=== PATIENT | female | born 1950 | race African-American/Black ===

== ENCOUNTER 2017-06-22 23:51 | Inpatient (IN) | payer MEDICARE, MEDICAID ==
[~2017-06-22] VITALS: Ht 182.9 cm; Wt 69.7 kg
[~2017-06-22 23:51] MED LIST: AMLO5 PO; CHOL1TAB16 PO; CYCL100C6 PO; FLUD.1 PO; ISON300T18 PO; LEVE250 PO; LEVE250T5; LEVO500T3 PO; MAGN400 PO; MYCO500T PO; NEXI40CA PO; PYRI50TA PO; SULF400T20 PO; TRAM50TA PO; TUMS500C PO; URSO300C3 PO
[2017-06-23] VITALS (9 sets, daily range): BP systolic 130–157; BP diastolic 65–74; PULSE 76–90; RESP 16–18; TEMP 95.4–99.7; O2SAT 95–99
[2017-06-23] MEDS ORDERED: CHOL1CAP34 PO (00:19)
[2017-06-23] MEDS ORDERED: TUMS500C CHEW (00:19)
[2017-06-23] MEDS ORDERED: MYCO250C PO (00:19)
[2017-06-23] MEDS ORDERED: LEVE250T5 PO (00:19)
[2017-06-23] MEDS ORDERED: CYCL25CA4 PO (00:19)
[2017-06-23] MEDS ORDERED: AMLO5TAB2 PO (00:19)
[2017-06-23] MEDS ORDERED: NEXI40CA PO (00:19)
[2017-06-23] MEDS ORDERED: MAGN400T2 PO (00:20)
[2017-06-23] MEDS ORDERED: ASPI81CH CHEW (00:20)
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
[2017-06-23] MEDS ORDERED: LIDOCAINE 1%/EPINEPHrine 1:100,000 SOLN 20 ML VIAL INFIL ONE (00:30)
[2017-06-23] MEDS ORDERED: ceFAZolin 2 GM PREMIX 50 ML IV ONE (00:30)
[2017-06-23] MEDS ORDERED: SODIUM CHLOR 0.9% 1000 ML INJ 1,000 ML IV SCH (00:30)
[2017-06-23 00:44] LABS: AUTOMATED NEUTROPHIL # 3.4 TH/MM3 (1.8-7.7); BASOPHIL # 0.1 TH/MM3 (0-0.2); BASOPHIL % 0.8 % (0.0-2.0); EOSINOPHIL # 0.1 TH/MM3 (0-0.4); EOSINOPHIL % 1.7 % (0.0-4.0); HEMATOCRIT 26.8 % (35.0-46.0); HEMO FLAGS DIFF FINAL; LYMPH % 43.6 % (9.0-44.0); LYMPHOCYTE # 3.1 TH/MM3 (1.0-4.8); MEAN CELL VOLUME 81.5 FL (80.0-100.0); MEAN CORPUSCULAR HEMOGLOBIN 26.1 PG (27.0-34.0); MONO % 7.2 % (0.0-8.0); NEUT % 46.7 % (16.0-70.0); PLATELET COUNT 196 TH/MM3 (150-450); RED BLOOD COUNT 3.29 MIL/MM3 (4.00-5.30); RED CELL DISTRIBUTION WIDTH 16.3 % (11.6-17.2); WHITE BLOOD COUNT 7.2 TH/MM3 (4.0-11.0)
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
[2017-06-23 00:51] LABS: APTT (PATIENT) 23.9 SEC (24.3-30.1); INTERNATIONAL NORMALIZED RATIO 0.9 RATIO; PROTHROMBIN TIME - PATIENT 9.7 SEC (9.8-11.6)
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
[2017-06-23 00:54] LABS: ALT (GPT) 16 U/L (10-53)
[2017-06-23 00:57] LABS: ALKALINE PHOSPHATASE 242 U/L (45-117); TOTAL BILIRUBIN ADULT 0.6 MG/DL (0.2-1.0)
[2017-06-23 01:02] LABS: ANION GAP 9 MEQ/L (5-15); AST (GOT) 46 U/L (15-37); BICARBONATE 18.5 MEQ/L (21.0-32.0); BLOOD UREA NITROGEN 9 MG/DL (7-18); CHLORIDE 114 MEQ/L (98-107); GLOMERULAR FILTRATION RATE 59 ML/MIN (>89); MAGNESIUM 1.7 MG/DL (1.5-2.5); POTASSIUM 4.4 MEQ/L (3.5-5.1); SODIUM (NA) 141 MEQ/L (136-145)
[2017-06-23] MEDS ORDERED: MORPHINE SULFATE 4 MG/ML INJ IV PUSH ONE (01:15)
[2017-06-23] MEDS ORDERED: ONDANSETRON HCL 4 MG/2 ML VIAL IV PUSH ONE ×2 (01:15→12:00)
[2017-06-23] MEDS ORDERED: LIDOCAINE 1%/EPINEPHrine 1:200,000 PF SOLN 30 ML VIAL INFIL ONE (02:00)
[2017-06-23] MEDS ORDERED: GENTAMICIN INJ 80 MG in SODIUM CHLORIDE 0.9% INJ 100 ML IV ONE (02:30)
[2017-06-23] MEDS ORDERED: BUPIVACAINE HCL PF 0.25% 30 ML VIAL ONE (02:43)
[2017-06-23] MEDS ORDERED: LACTULOSE SYRUP 20 GM/30 ML CUP PO PRN (02:45)
[2017-06-23] MEDS ORDERED: ONDANSETRON HCL 4 MG/2 ML VIAL IVP PRN (02:45)
[2017-06-23] MEDS ORDERED: HYDROmorphone HCL PF 1 MG/ML VIAL IV PRN (02:45)
[2017-06-23] MEDS ORDERED: BISACODYL 10 MG SUPP RECTAL PRN (02:45)
[2017-06-23] MEDS ORDERED: MAGNESIUM HYDROXIDE SUSP 30 ML CUP PO PRN (02:45)
[2017-06-23] MEDS ORDERED: SENNOSIDES 8.6 MG TAB PO PRN (02:45)
[2017-06-23] MEDS ORDERED: ACETAMINOPHEN 325 MG TAB PO PRN (02:45)
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
--- NOTE | 2017-06-23 04:16 | HHI.PR ---
Immediate Post Op Note Procedure Date: Jun 23, 2017 Pre Op Diagnosis: 1. L ankle fracture, open 2. Laceration L lateral leg Post Op Diagnosis: same Surgeon: Raoul Daniels DPM Special Education Educational Assistant(s): Staff Procedure: 1. Irrigation and debridement of open L ankle fracture. 2. Repair of laceration L lateral leg Findings: Longitudinal laceration to left lower lateral leg down to subcutaneous tissue, 5cm length. No exposed bone or tendon to this wound. No gross contamination noted. Irrigation with 9L NS, followed by approximation with 2-0 nylon. Xeroform and 4x4, followed by cast padding, short posterior splint. Large curvilinear laceration, approx 12cm length, to medial ankle at level of medial malleolus with small window of visible fracture line in wound. No apparent tendon laceration noted in wound. No gross contamination noted. Mild bleeding from wound. Doppler exam shows PT artery and DP artery intact. Irrigation with 9L NS with irrigant, Culture taken at level of medial malleolar fracture where bone exposed. Laceration approximated with 2-0 nylon, followed by xeroform, 4x4, abd x 2, cast padding, short posterior splint. Additional Information: NWB LLE in splint. Await culture and CT scan. Continue IV antibiotics as ordered. Likely serial washout vs ORIF pending negative cultures. Complications: none Specimen(s) removed: 1. culture L medial ankle Estimated blood loss: 20mL Anesthesia: General Drains: None IVF Tourniquet time (min at mmHg) n/a Patient to: PACU Patient Condition: Good Date/Time of Procedure: SEE SURGICAL CARE RECORD Raoul Daniels DPM Jun 23, 2017 04:16
[2017-06-23] MEDS: SODIUM CHLOR 0.9% 1000 ML INJ 1,000 ML IV SCH ×3 (05:33→20:41)
[2017-06-23] MEDS: PANTOPRAZOLE SOD 40 MG DELAYED RELEASE TAB PO SCH (05:38)
[2017-06-23] MEDS: MAGNESIUM OXIDE 400 MG TAB PO SCH ×2 (05:38→18:38)
[2017-06-23] MEDS ORDERED: NEOMYCIN/POLYMYXIN 1 ML G.U. IRRIGANT IRRIGATION ONE (05:49)
[2017-06-23] MEDS: SODIUM CHLORIDE 0.9% FLUSH 10 ML FLUSH IV FLUSH SCH ×2 (09:43→20:41)
[2017-06-23] MEDS: levETIRAcetam 250 MG TAB PO SCH ×2 (09:43→20:40)
[2017-06-23] MEDS: ceFAZolin 2 GM PREMIX 50 ML IV SCH ×2 (09:43→16:26)
[2017-06-23] MEDS: MYCOPHENOLATE MOFETIL 250 MG CAP PO SCH ×2 (09:44→20:40)
[2017-06-23] MEDS: diphenhydrAMINE HCL 50 MG/ML VIAL IV PUSH PRN ×3 (09:44→21:43)
[2017-06-23] MEDS: cycloSPORINE 25 MG CAP PO SCH ×2 (09:44→20:41)
[2017-06-23] MEDS: DOCUSATE SODIUM 50 MG/SENNA 8.6 MG TAB PO SCH ×2 (09:46→20:40)
[2017-06-23] MEDS: amLODIPine BESYLATE 5 MG TAB PO SCH (09:46)
[2017-06-23] MEDS: GENTAMICIN 80 MG PREMIX 100 ML IV SCH ×2 (10:18→18:36)
[2017-06-23] MEDS ORDERED: LACTATED RINGER'S 1000 ML INJ 1,000 ML IV ONE (12:00)
[2017-06-23] MEDS ORDERED: PHENYLEPH/NS 1000 MCG/10 ML SYR IV ONE (12:00)
[2017-06-23] MEDS ORDERED: PROPOFOL 200 MG/20 ML AMP IV ONE (12:00)
--- NOTE | 2017-06-23 13:14 | RADRPT ---
EXAM DATE/TIME: 06/23/2017 12:09 [place] COMPARISON: No previous studies available for comparison. INDICATIONS : Post-op left ankle fracture. RADIATION DOSE: 16.56 CTDIvol (mGy) MEDICAL HISTORY : Cardiovascular disease. Lymphoma. Hernia, hiatal.Hypertension. Diabetes. SURGICAL HISTORY : None. ENCOUNTER: Initial ACUITY: 1 day PAIN SCALE: 7/10 LOCATION: Left lateral TECHNIQUE: Volumetric scanning of the ankle was performed. Using automated exposure control and adjustment of t he mA and/or kV according to patient size, radiation dose was kept as low as reasonably achievable to obtain optimal diagnostic quality images. DICOM format image data is available electronically for review and comparison. FINDINGS: There is in nondisplaced horizontal fracture medial malleolus. The lateral malleolus is intact. The posterior lip of the tibial plafond is intact. The talus and calcaneus are intact. There is no intra-articular air. There is minimal subcutaneous air over the medial malleolus. CONCLUSION: Fracture the medial malleolus as described above. Nura Alatorre MD FACR on June 23, 2017 at 13:10 Board Certified Radiologist. This report was verified electronically.
[2017-06-23] MEDS ORDERED: ACETAMINOPHEN/HYDROcodone 325 MG/5 MG TAB PO PRN (15:00)
--- NOTE | 2017-06-23 15:54 | EKG ---
Date Performed: 06/23/2017 Time Performed: 01:15:11 PTAGE: 66 years EKG: Sinus rhythm LEFT VENTRICULAR HYPERTROPHY AND ST-T CHANGE WHEN COMPARED TO PREVIOUS TRACING, PRECORDIAL T WAVE CH ANGES ARE NEW, CONSIDER ISCHEMIA. ABNORMAL ECG PREVIOUS TRACING : 05/26/2015 06.46 DOCTOR: Portillo Doherty Interpretating Date/Time 06/23/2017 15:53:39
[2017-06-23] MEDS: SODIUM CHLORIDE 0.9% FLUSH 10 ML FLUSH IV FLUSH PRN ×2 (16:26→18:38)
[2017-06-23] MEDS: RESP: ALBUTEROL 2.5 MG/IPRATROPIUM 0.5 MG NEB (SCH) NEB (20:00)
[2017-06-23] MEDS: guaiFENesin E.R. 600 MG TAB PO SCH (20:40)
[2017-06-23] MEDS: ACETAMINOPHEN/HYDROcodone 325 MG/7.5 MG TAB PO PRN (21:43)
[2017-06-24] VITALS (9 sets, daily range): BP systolic 122–152; BP diastolic 57–93; PULSE 75–95; RESP 16–18; TEMP 97.3–99.9; O2SAT 92–98
[2017-06-24] MEDS: RESP: ALBUTEROL 2.5 MG/IPRATROPIUM 0.5 MG NEB (SCH) NEB ×6 (01:33→19:39)
[2017-06-24] MEDS: ACETAMINOPHEN/HYDROcodone 325 MG/7.5 MG TAB PO PRN ×5 (01:55→20:12)
[2017-06-24] MEDS: ceFAZolin 2 GM PREMIX 50 ML IV SCH ×3 (01:56→17:12)
[2017-06-24] MEDS: GENTAMICIN 80 MG PREMIX 100 ML IV SCH ×3 (01:56→19:22)
[2017-06-24] MEDS: diphenhydrAMINE HCL 50 MG/ML VIAL IV PUSH PRN ×4 (03:55→23:16)
[2017-06-24] MEDS: MAGNESIUM OXIDE 400 MG TAB PO SCH ×2 (05:52→19:22)
[2017-06-24] MEDS: PANTOPRAZOLE SOD 40 MG DELAYED RELEASE TAB PO SCH (05:52)
[2017-06-24 07:01] LABS: AUTOMATED NEUTROPHIL # 3.9 TH/MM3 (1.8-7.7); BASOPHIL % 0.2 % (0.0-2.0); EOSINOPHIL # 0.1 TH/MM3 (0-0.4); EOSINOPHIL % 0.8 % (0.0-4.0); HEMATOCRIT 24.6 % (35.0-46.0); HEMO FLAGS DIFF FINAL; LYMPH % 33.5 % (9.0-44.0); LYMPHOCYTE # 2.2 TH/MM3 (1.0-4.8); MEAN CELL VOLUME 82.1 FL (80.0-100.0); MEAN CORPUSCULAR HGB CONC 31.6 % (32.0-36.0); MONO % 6.7 % (0.0-8.0); NEUT % 58.8 % (16.0-70.0); PLATELET COUNT 194 TH/MM3 (150-450); RED BLOOD COUNT 2.99 MIL/MM3 (4.00-5.30); WHITE BLOOD COUNT 6.7 TH/MM3 (4.0-11.0)
[2017-06-24 08:09] LABS: ANION GAP 11 MEQ/L (5-15); AST (GOT) 27 U/L (15-37); BLOOD UREA NITROGEN 9 MG/DL (7-18); CHLORIDE 110 MEQ/L (98-107); GLOMERULAR FILTRATION RATE 63 ML/MIN (>89); POTASSIUM 3.7 MEQ/L (3.5-5.1); SODIUM (NA) 141 MEQ/L (136-145)
[2017-06-24 08:13] LABS: ALKALINE PHOSPHATASE 198 U/L (45-117); ALT (GPT) 12 U/L (10-53); TOTAL BILIRUBIN ADULT 0.9 MG/DL (0.2-1.0)
[2017-06-24] MEDS: SODIUM CHLOR 0.9% 1000 ML INJ 1,000 ML IV SCH ×2 (08:39→18:39)
--- NOTE | 2017-06-24 08:54 | HHI.PR ---
Subjective Remarks This is a pleasant 66 y/o Female with Hypertension, Seizure disorder, CVA, Liver transplant, Tobacco dependence status post fall and left ankle injury, Foot X-ray with mild soft tissue air posterior to the distal leg. Ankle X-ray minimally displaced oblique fracture base medial malleolus. with Diagnosis of Left Ankle fracture Open and Laceration of the Left lateral leg, status post I and D of Open Left ankle fracture, repair of Laceration of Left lateral leg. Stable seen in her bedroom eating her breakfast, no nausea, vomit or diarrhea as per Doctor Gomez Taveras recommended due to Left open ankle fracture status post I and D, for Surgery tomorrow, he prefer to have 2 negative cultures for ORIF. Objective Vital Signs Date Time Temp Pulse Resp B/P (MAP) Pulse Ox O2 Delivery O2 Flow Rate FiO2 06/24/17 04:55 98.7 81 18 135/63 (87) 95 06/24/17 01:34 94 Nasal Cannula 2.00 06/24/17 00:50 99.9 75 18 142/72 (95) 95 06/23/17 20:50 99.7 89 18 157/72 (100) 95 06/23/17 16:00 98.6 85 16 134/74 (94) 95 06/23/17 12:00 95.9 78 16 135/65 (88) 99 06/23/17 09:09 96 Nasal Cannula 2.00 I/O 06/23/17 06/23/17 06/23/17 06/24/17 06/24/17 06/24/17 07:00 15:00 23:00 07:00 15:00 23:00 Intake Total 170 ml 250 ml 290 ml 440 ml Balance 170 ml 250 ml 290 ml 440 ml Intake Oral 120 ml 100 ml 240 ml 240 ml IV Total 50 ml 150 ml 50 ml 200 ml # Voids 0 3 1 3 # Bowel Movements 0 0 0 0 Result Diagram: 06/24/17 0631 06/24/17 0631 Imaging Last Impressions Lower Extremity CT 06/23/17 0417 Signed Impressions: Service Date/Time: Friday, June 23, 2017 12:09 - CONCLUSION: Fracture the medial malleolus as described above. Nura Alatorre MD FACR Foot X-Ray 06/23/17 0009 Signed Impressions: Service Date/Time: Friday, June 23, 2017 00:31 - CONCLUSION: 1. Mild soft tissue air posterior to the distal leg only visualized on the lateral projection. 2. No acute osseous abnormality is identified within the foot. Néstor Lindsey MD Chest X-Ray 06/23/179 Signed Impressions: Service Date/Time: Friday, June 23, 2017 00:23 - CONCLUSION: No acute cardiopulmonary abnormality is identified. Néstor Lindsey MD Ankle X-Ray 06/23/178 Signed Impressions: Service Date/Time: Friday, June 23, 2017 00:25 - CONCLUSION: 1. Minimally displaced oblique fracture through the base of the medial malleolus. 2. Adjacent soft tissue changes suggesting laceration. Néstor Lindsey MD Procedures With Diagnosis of Left Ankle fracture Open and Laceration of the Left lateral leg, status post I and D of Open Left ankle fracture, repair of Laceration of Left lateral leg. 06/23/17 Other Results Laboratory Tests Test 06/23/17 00:15 06/24/17 06:31 Prothrombin Time 9.7 SEC Prothromb Time International Ratio 0.9 RATIO Activated Partial Thromboplast Time 23.9 SEC Blood Urea Nitrogen 9 MG/DL 9 MG/DL Creatinine 1.12 MG/DL 1.06 MG/DL Random Glucose 92 MG/DL 88 MG/DL Total Protein 7.0 GM/DL 6.9 GM/DL Albumin 2.6 GM/DL 2.6 GM/DL Calcium Level 8.4 MG/DL 8.6 MG/DL Magnesium Level 1.7 MG/DL Alkaline Phosphatase 242 U/L 198 U/L Aspartate Amino Transf (AST/SGOT) 46 U/L 27 U/L Alanine Aminotransferase (ALT/SGPT) 16 U/L 12 U/L Total Bilirubin 0.6 MG/DL 0.9 MG/DL Sodium Level 141 MEQ/L 141 MEQ/L Potassium Level 4.4 MEQ/L 3.7 MEQ/L Chloride Level 114 MEQ/L 110 MEQ/L Carbon Dioxide Level 18.5 MEQ/L 20.0 MEQ/L White Blood Count 6.7 TH/MM3 Red Blood Count 2.99 MIL/MM3 Hemoglobin 7.8 GM/DL Hematocrit 24.6 % Mean Corpuscular Volume 82.1 FL Mean Corpuscular Hemoglobin 26.0 PG Mean Corpuscular Hemoglobin Concent 31.6 % Red Cell Distribution Width 17.0 % Platelet Count 194 TH/MM3 Mean Platelet Volume 8.2 FL Neutrophils (%) (Auto) 58.8 % Lymphocytes (%) (Auto) 33.5 % Monocytes (%) (Auto) 6.7 % Eosinophils (%) (Auto) 0.8 % Basophils (%) (Auto) 0.2 % Neutrophils # (Auto) 3.9 TH/MM3 Lymphocytes # (Auto) 2.2 TH/MM3 Monocytes # (Auto) 0.5 TH/MM3 Eosinophils # (Auto) 0.1 TH/MM3 Basophils # (Auto) 0.0 TH/MM3 CBC Comment DIFF FINAL Differential Comment Anion Gap 11 MEQ/L Estimat Glomerular Filtration Rate 63 ML/MIN Objective Remarks GENERAL: Extremely pleasant middle-aged black female in no acute distress. Daughter at bedside. HEENT: PERRLA, EOMI. No scleral icterus or conjunctival pallor. No lid lag or facial droop. CARDIOVASCULAR: Regular rate and rhythm. No obvious murmurs to auscultation. No chest tenderness to palpation. RESPIRATORY: No obvious rhonchi or wheezing. Clear to auscultation. Breath sounds equal bilaterally. GASTROINTESTINAL: Abdomen soft, non-tender, nondistended. BS normal. MUSCULOSKELETAL: Extremities without clubbing, Left leg with Orthotics in place. NEUROLOGICAL: Awake, alert and oriented x4. No focal neurologic deficits. Medications and IVs Current Medications Medications (Trade) Dose Ordered Sig/Shanon Route Start Time Stop Time Status Last Admin Sodium Chloride 1,000 ml @ 100 mls/hr Q10H IV 06/23/17 02:39 (NS Flush) 2 ml UNSCH PRN IV FLUSH 06/23/17 02:45 06/23/17 18:38 (NS Flush) 2 ml BID IV FLUSH 06/23/17 09:00 06/23/17 20:41 (Zofran Inj) 4 mg Q6H PRN IVP 06/23/17 02:45 (Tylenol) 650 mg Q6H PRN PO 06/23/17 02:45 (Stefanie-Colace) 1 tab BID PO 06/23/17 09:00 06/23/17 20:40 (Milk Of Magnesia Liq) 30 ml Q12H PRN PO 06/23/17 02:45 (Senokot) 17.2 mg Q12H PRN PO 06/23/17 02:45 (Dulcolax Supp) 10 mg DAILY PRN RECTAL 06/23/17 02:45 (Lactulose Liq) 30 ml DAILY PRN PO 06/23/17 02:45 (Norvasc) 5 mg DAILY PO 06/23/17 09:00 06/23/17 09:46 (SandIMMUNE) 75 mg BID PO 06/23/17 09:00 06/23/17 20:41 (Keppra) 250 mg BID PO 06/23/17 09:00 06/23/17 20:40 (Mag-Ox) 400 mg BID@0700,1900 PO 06/23/17 07:00 06/24/17 05:52 (Cellcept) 500 mg BID PO 06/23/17 09:00 06/23/17 20:40 (Protonix) 40 mg DAILY@0600 PO 06/23/17 06:00 06/24/17 05:52 Gentamicin Sulfate/Sodium Chloride 100 ml @ 200 mls/hr Q8H IV 06/23/17 11:00 06/24/17 01:56 Cefazolin Sodium/ Dextrose 50 ml @ 100 mls/hr Q8H IV 06/23/17 09:00 06/24/17 01:56 (Benadryl Inj) 25 mg Q6H PRN IV PUSH 06/23/17 09:30 06/24/17 03:55 ([place] 7.5-325 Mg) 1 tab Q4H PRN PO 06/23/17 17:00 06/24/17 05:52 (Duoneb Neb) 1 ampule Q4HR NEB NEB 06/23/17 20:00 06/24/17 04:25 (Mucinex Er) 600 mg BID PO 06/23/17 21:00 06/23/17 20:40 A/P Assessment and Plan 1. Open Ankle Fx: Left. S/p injury, Ankle X-ray w/ minimal displaced oblique fracture through base of medial malleolus, status post I and D, as per Doctor Taveras he prefer to have 2 negative cultures for ORIF. he will go to surgery tomorrow. on antibiotics as per Podiatry specialist Cefazolin and Gentamicin 2. Liver Transplant Recipient: h/o Liver Transplant 2014. Stable. Resume home Cyclosporine and Mycophenolate. 3. Renal Insufficiency: Improving. 4. HTN: controlled. 5. Anemia: chronic iron deficiency anemia continue to follow not yet for blood transfusion. 6. Tobacco Abuse: Pt counselled. Ativan/NicoDerm prn if needed. Bronchodilator, Mucolytic and Incentive spirometry. DVT Prophylaxis: Anticoagulation post op per Ortho Discharge Planning Once cleared by Podiatry specialist. Tacos Germain MD Jun 24, 2017 08:54
[2017-06-24] MEDS: SODIUM CHLORIDE 0.9% FLUSH 10 ML FLUSH IV FLUSH SCH ×2 (08:58→20:11)
[2017-06-24] MEDS: guaiFENesin E.R. 600 MG TAB PO SCH ×2 (08:58→20:12)
[2017-06-24] MEDS: MYCOPHENOLATE MOFETIL 250 MG CAP PO SCH ×2 (08:59→20:12)
[2017-06-24] MEDS: levETIRAcetam 250 MG TAB PO SCH ×2 (08:59→20:12)
[2017-06-24] MEDS: amLODIPine BESYLATE 5 MG TAB PO SCH (08:59)
[2017-06-24] MEDS: DOCUSATE SODIUM 50 MG/SENNA 8.6 MG TAB PO SCH ×2 (08:59→20:12)
[2017-06-24] MEDS: cycloSPORINE 25 MG CAP PO SCH ×2 (08:59→20:11)
[2017-06-24] MEDS: SODIUM CHLORIDE 0.9% FLUSH 10 ML FLUSH IV FLUSH PRN ×2 (10:54→17:12)
--- NOTE | 2017-06-24 13:03 | PD.POD ---
Subjective Pain score: 7 Remarks doing ok, some pain. Past Med/Surg/Social History Past Medical History Cardiovascular: REPORTS HX OF: Hypertension Gastrointestinal: REPORTS HX OF: Liver disease Past Surgical History Gastrointestinal: REPORTS HX OF: Hernia repair, Other GI surgery (liver transplant) Musculoskeletal: REPORTS HX OF: Other musculoskeletal srg (nerve and tendon repair, right wrist) Social History Smoking Status: Current Every Day Smoker Objective Vital Signs Vital Signs Date Time Temp Pulse Resp B/P (MAP) Pulse Ox O2 Delivery O2 Flow Rate FiO2 06/24/17 09:08 92 21 06/24/17 08:00 98.4 77 16 126/74 (91) 95 06/24/17 04:55 98.7 81 18 135/63 (87) 95 06/24/17 01:34 94 Nasal Cannula 2.00 06/24/17 00:50 99.9 75 18 142/72 (95) 95 06/23/17 20:50 99.7 89 18 157/72 (100) 95 06/23/17 16:00 98.6 85 16 134/74 (94) 95 Coded Allergies: shellfish derived (Unverified Allergy, Severe, 06/23/17) Medications and IVs Administered Medications Medications (Trade) Dose Ordered Sig/Shanon Route PRN Reason Start Time Stop Time Status Last Admin Dose Admin Sodium Chloride (NS Flush) 2 ml UNSCH PRN IV FLUSH FLUSH AFTER USING IV ACCESS 06/23/17 02:45 06/24/17 10:54 Sodium Chloride (NS Flush) 2 ml BID IV FLUSH 06/23/17 09:00 06/24/17 08:58 Senna/Docusate Sodium (Stefanie-Colace) 1 tab BID PO 06/23/17 09:00 06/24/17 08:59 Magnesium Hydroxide (Milk Of Magnesia Liq) 30 ml Q12H PRN PO MILD - MODERATE CONSTIPATION 06/23/17 02:45 06/24/17 08:58 Sennosides (Senokot) 17.2 mg Q12H PRN PO MODERATE - SEVERE CONSTIPATION 06/23/17 02:45 06/24/17 08:58 Lactulose (Lactulose Liq) 30 ml DAILY PRN PO SEVERE CONSITIPATION 06/23/17 02:45 06/24/17 08:58 Amlodipine Besylate (Norvasc) 5 mg DAILY PO 06/23/17 09:00 06/24/17 08:59 Cyclosporine (SandIMMUNE) 75 mg BID PO 06/23/17 09:00 06/24/17 08:59 Levetriacetam (Keppra) 250 mg BID PO 06/23/17 09:00 06/24/17 08:59 Magnesium Oxide (Mag-Ox) 400 mg BID@0700,1900 PO 06/23/17 07:00 06/24/17 05:52 Mycophenolate Mofetil (Cellcept) 500 mg BID PO 06/23/17 09:00 06/24/17 08:59 Pantoprazole Sodium (Protonix) 40 mg DAILY@0600 PO 06/23/17 06:00 06/24/17 05:52 Gentamicin Sulfate/Sodium Chloride 100 ml @ 200 mls/hr Q8H IV 06/23/17 11:00 06/24/17 10:54 Cefazolin Sodium/ Dextrose 50 ml @ 100 mls/hr Q8H IV 06/23/17 09:00 06/24/17 08:58 Diphenhydramine HCl (Benadryl Inj) 25 mg Q6H PRN IV PUSH ITCHING 06/23/17 09:30 06/24/17 10:54 Acetaminophen/ Hydrocodone Bitart ([place] 7.5-325 Mg) 1 tab Q4H PRN PO PAIN SCALE 6 TO 10 06/23/17 17:00 06/24/17 10:55 Albuterol/ Ipratropium (Duoneb Neb) 1 ampule Q4HR NEB NEB 06/23/17 20:00 06/24/17 09:08 Guaifenesin (Mucinex Er) 600 mg BID PO 06/23/17 21:00 06/24/17 08:58 Other Results Laboratory Tests Test 06/23/17 00:15 06/24/17 06:31 White Blood Count 7.2 TH/MM3 6.7 TH/MM3 Red Blood Count 3.29 MIL/MM3 2.99 MIL/MM3 Hemoglobin 8.6 GM/DL 7.8 GM/DL Hematocrit 26.8 % 24.6 % Mean Corpuscular Volume 81.5 FL 82.1 FL Mean Corpuscular Hemoglobin 26.1 PG 26.0 PG Mean Corpuscular Hemoglobin Concent 32.0 % 31.6 % Red Cell Distribution Width 16.3 % 17.0 % Platelet Count 196 TH/MM3 194 TH/MM3 Mean Platelet Volume 8.5 FL 8.2 FL Neutrophils (%) (Auto) 46.7 % 58.8 % Lymphocytes (%) (Auto) 43.6 % 33.5 % Monocytes (%) (Auto) 7.2 % 6.7 % Eosinophils (%) (Auto) 1.7 % 0.8 % Basophils (%) (Auto) 0.8 % 0.2 % Neutrophils # (Auto) 3.4 TH/MM3 3.9 TH/MM3 Lymphocytes # (Auto) 3.1 TH/MM3 2.2 TH/MM3 Monocytes # (Auto) 0.5 TH/MM3 0.5 TH/MM3 Eosinophils # (Auto) 0.1 TH/MM3 0.1 TH/MM3 Basophils # (Auto) 0.1 TH/MM3 0.0 TH/MM3 CBC Comment DIFF FINAL DIFF FINAL Differential Comment Laboratory Tests Test 06/23/17 00:15 06/24/17 06:31 Blood Urea Nitrogen 9 MG/DL 9 MG/DL Creatinine 1.12 MG/DL 1.06 MG/DL Random Glucose 92 MG/DL 88 MG/DL Total Protein 7.0 GM/DL 6.9 GM/DL Albumin 2.6 GM/DL 2.6 GM/DL Calcium Level 8.4 MG/DL 8.6 MG/DL Magnesium Level 1.7 MG/DL Alkaline Phosphatase 242 U/L 198 U/L Aspartate Amino Transf (AST/SGOT) 46 U/L 27 U/L Alanine Aminotransferase (ALT/SGPT) 16 U/L 12 U/L Total Bilirubin 0.6 MG/DL 0.9 MG/DL Sodium Level 141 MEQ/L 141 MEQ/L Potassium Level 4.4 MEQ/L 3.7 MEQ/L Chloride Level 114 MEQ/L 110 MEQ/L Carbon Dioxide Level 18.5 MEQ/L 20.0 MEQ/L Anion Gap 9 MEQ/L 11 MEQ/L Estimat Glomerular Filtration Rate 59 ML/MIN 63 ML/MIN Microbiology Date/Time Source Procedure Growth Status 06/23/17 03:34 Wound Ankle Fungal Smear - Final NO FUNGAL ELEMENTS SEEN. Resulted 06/23/17 03:34 Wound Ankle Fungal Culture Pending Resulted 06/23/17 03:34 Wound Ankle Acid Fast Stain - Final NO ACID FAST BACILLI SEEN Resulted 06/23/17 03:34 Wound Ankle Mycobacterial Culture Pending Resulted 06/23/17 03:34 Wound Ankle Gram Stain - Final Resulted 06/23/17 03:34 Wound Ankle Wound Culture Pending Resulted Physical Exam Remarks left ankle- medial laceration and anterior lateral ankle laceration well coapted no SOI no ischemic changes ankle is good alignment foot is warm good pulses sensation intact. Assessment & Plan A/P Left open ankle fracture, SP i n d. OR tomorrow for washout, prefer to have x2 neg cultures before ORIF, Frances to perform surgery tomorrow late afternoon. Gomez Taveras DPM Jun 24, 2017 13:03
[2017-06-24] MEDS ORDERED: LACTATED RINGER'S 1000 ML IV PRN (22:45)
[2017-06-24] MEDS ORDERED: CHLORHEXIDINE GLUCONATE 2 % 1 PACK (2 CLOTHS) TOPICAL PRN (22:45)
[2017-06-24] MEDS ORDERED: SODIUM CHLORID 0.9% 500 ML IV PRN (22:45)
[2017-06-24] MEDS ORDERED: POVIDONE IODINE 5% (ANTISEPSIS KIT) 4 APPLICATIONS EACH NARE PRN (22:45)
[2017-06-25] VITALS (9 sets, daily range): BP systolic 119–154; BP diastolic 58–71; PULSE 74–89; RESP 17–18; TEMP 96.7–98.9; O2SAT 95–99
[2017-06-25] MEDS: ACETAMINOPHEN/HYDROcodone 325 MG/7.5 MG TAB PO PRN ×5 (00:19→20:36)
[2017-06-25] MEDS: ceFAZolin 2 GM PREMIX 50 ML IV SCH ×3 (00:19→17:00)
[2017-06-25] MEDS: RESP: ALBUTEROL 2.5 MG/IPRATROPIUM 0.5 MG NEB (SCH) NEB ×6 (00:31→20:00)
[2017-06-25] MEDS: GENTAMICIN 80 MG PREMIX 100 ML IV SCH ×3 (02:28→19:00)
[2017-06-25] MEDS: SODIUM CHLOR 0.9% 1000 ML INJ 1,000 ML IV SCH ×3 (04:18→19:45)
[2017-06-25] MEDS: PANTOPRAZOLE SOD 40 MG DELAYED RELEASE TAB PO SCH (06:14)
[2017-06-25] MEDS: diphenhydrAMINE HCL 50 MG/ML VIAL IV PUSH PRN ×3 (06:14→20:35)
[2017-06-25] MEDS: MAGNESIUM OXIDE 400 MG TAB PO SCH ×2 (06:14→19:00)
[2017-06-25 07:50] LABS: AUTOMATED NEUTROPHIL # 3.3 TH/MM3 (1.8-7.7); BASOPHIL % 0.4 % (0.0-2.0); EOSINOPHIL # 0.1 TH/MM3 (0-0.4); EOSINOPHIL % 1.2 % (0.0-4.0); HEMO FLAGS DIFF FINAL; LYMPH % 33.2 % (9.0-44.0); LYMPHOCYTE # 1.9 TH/MM3 (1.0-4.8); MEAN CELL VOLUME 82.1 FL (80.0-100.0); MEAN CORPUSCULAR HEMOGLOBIN 26.4 PG (27.0-34.0); MEAN CORPUSCULAR HGB CONC 32.1 % (32.0-36.0); MONO % 8.3 % (0.0-8.0); NEUT % 56.9 % (16.0-70.0); PLATELET COUNT 188 TH/MM3 (150-450); RED CELL DISTRIBUTION WIDTH 16.9 % (11.6-17.2); WHITE BLOOD COUNT 5.8 TH/MM3 (4.0-11.0)
[2017-06-25] MEDS: levETIRAcetam 250 MG TAB PO SCH ×2 (07:54→20:36)
[2017-06-25] MEDS: cycloSPORINE 25 MG CAP PO SCH ×2 (07:54→20:36)
[2017-06-25] MEDS: MYCOPHENOLATE MOFETIL 250 MG CAP PO SCH ×2 (07:54→20:36)
[2017-06-25] MEDS: guaiFENesin E.R. 600 MG TAB PO SCH ×2 (07:55→20:36)
[2017-06-25] MEDS: DOCUSATE SODIUM 50 MG/SENNA 8.6 MG TAB PO SCH ×2 (07:55→20:36)
[2017-06-25] MEDS: amLODIPine BESYLATE 5 MG TAB PO SCH (07:55)
[2017-06-25] MEDS: SODIUM CHLORIDE 0.9% FLUSH 10 ML FLUSH IV FLUSH SCH ×2 (07:56→20:36)
[2017-06-25 07:59] LABS: BICARBONATE 20.7 MEQ/L (21.0-32.0); POTASSIUM 3.6 MEQ/L (3.5-5.1)
--- NOTE | 2017-06-25 08:55 | HHI.PR ---
Subjective Remarks This is a pleasant 66 y/o Female with Hypertension, Seizure disorder, CVA, Liver transplant, Tobacco dependence status post fall and left ankle injury, Foot X-ray with mild soft tissue air posterior to the distal leg. Ankle X-ray minimally displaced oblique fracture base medial malleolus. with Diagnosis of Left Ankle fracture Open and Laceration of the Left lateral leg, status post I and D of Open Left ankle fracture, repair of Laceration of Left lateral leg. Stable seen in her bedroom eating her breakfast, as per Doctor Gomez Taveras recommended due to Left open ankle fracture status post I and D, for Surgery tomorrow, he prefer to have 2 negative cultures for ORIF. 06/25: Sable in her bedroom no complaint, no nausea, vomit or diarrhea. wound culture negative, Podiatry specialist following. Objective Vital Signs Date Time Temp Pulse Resp B/P (MAP) Pulse Ox O2 Delivery O2 Flow Rate FiO2 06/25/17 07:50 98.4 78 18 149/71 (97) 95 06/25/17 03:38 98.7 79 17 132/69 (90) 99 06/25/17 00:34 98 06/25/17 00:06 96.7 89 18 154/58 (90) 96 06/24/17 20:00 97.4 84 18 134/63 (86) 98 06/24/17 19:42 97 06/24/17 17:11 18 06/24/17 16:00 98.0 95 18 152/93 (112) 93 06/24/17 12:00 97.3 84 16 122/57 (78) 93 06/24/17 09:08 92 21 I/O 06/24/17 06/24/17 06/24/17 06/25/17 06/25/17 06/25/17 07:00 15:00 23:00 07:00 15:00 23:00 Intake Total 440 ml 150 ml 1230 ml 50 ml Balance 440 ml 150 ml 1230 ml 50 ml Intake Oral 240 ml 1080 ml 0 ml IV Total 200 ml 150 ml 150 ml 50 ml # Voids 3 7 4 # Bowel Movements 0 2 0 Result Diagram: 06/25/17 0615 06/25/17 0615 Imaging Last Impressions Lower Extremity CT 06/23/17 0417 Signed Impressions: Service Date/Time: Friday, June 23, 2017 12:09 - CONCLUSION: Fracture the medial malleolus as described above. Nura Alatorre MD FACR Foot X-Ray 06/23/178 Signed Impressions: Service Date/Time: Friday, June 23, 2017 00:31 - CONCLUSION: 1. Mild soft tissue air posterior to the distal leg only visualized on the lateral projection. 2. No acute osseous abnormality is identified within the foot. Néstor Lindsey MD Chest X-Ray 06/23/178 Signed Impressions: Service Date/Time: Friday, June 23, 2017 00:23 - CONCLUSION: No acute cardiopulmonary abnormality is identified. Néstor Lindsey MD Ankle X-Ray 06/23/178 Signed Impressions: Service Date/Time: Friday, June 23, 2017 00:25 - CONCLUSION: 1. Minimally displaced oblique fracture through the base of the medial malleolus. 2. Adjacent soft tissue changes suggesting laceration. Néstor Lindsey MD Procedures With Diagnosis of Left Ankle fracture Open and Laceration of the Left lateral leg, status post I and D of Open Left ankle fracture, repair of Laceration of Left lateral leg. 06/23/17 Other Results Laboratory Tests Test 06/23/17 00:15 06/24/17 06:31 06/25/17 06:15 Prothrombin Time 9.7 SEC Prothromb Time International Ratio 0.9 RATIO Activated Partial Thromboplast Time 23.9 SEC Blood Urea Nitrogen 9 MG/DL 9 MG/DL 8 MG/DL Creatinine 1.12 MG/DL 1.06 MG/DL 0.97 MG/DL Random Glucose 92 MG/DL 88 MG/DL 88 MG/DL Total Protein 7.0 GM/DL 6.9 GM/DL Albumin 2.6 GM/DL 2.6 GM/DL Calcium Level 8.4 MG/DL 8.6 MG/DL 9.1 MG/DL Magnesium Level 1.7 MG/DL Alkaline Phosphatase 242 U/L 198 U/L Aspartate Amino Transf (AST/SGOT) 46 U/L 27 U/L Alanine Aminotransferase (ALT/SGPT) 16 U/L 12 U/L Total Bilirubin 0.6 MG/DL 0.9 MG/DL Sodium Level 141 MEQ/L 141 MEQ/L 141 MEQ/L Potassium Level 4.4 MEQ/L 3.7 MEQ/L 3.6 MEQ/L Chloride Level 114 MEQ/L 110 MEQ/L 111 MEQ/L Carbon Dioxide Level 18.5 MEQ/L 20.0 MEQ/L 20.7 MEQ/L White Blood Count 5.8 TH/MM3 Red Blood Count 2.80 MIL/MM3 Hemoglobin 7.4 GM/DL Hematocrit 23.0 % Mean Corpuscular Volume 82.1 FL Mean Corpuscular Hemoglobin 26.4 PG Mean Corpuscular Hemoglobin Concent 32.1 % Red Cell Distribution Width 16.9 % Platelet Count 188 TH/MM3 Mean Platelet Volume 8.5 FL Neutrophils (%) (Auto) 56.9 % Lymphocytes (%) (Auto) 33.2 % Monocytes (%) (Auto) 8.3 % Eosinophils (%) (Auto) 1.2 % Basophils (%) (Auto) 0.4 % Neutrophils # (Auto) 3.3 TH/MM3 Lymphocytes # (Auto) 1.9 TH/MM3 Monocytes # (Auto) 0.5 TH/MM3 Eosinophils # (Auto) 0.1 TH/MM3 Basophils # (Auto) 0.0 TH/MM3 CBC Comment DIFF FINAL Differential Comment Anion Gap 9 MEQ/L Estimat Glomerular Filtration Rate 69 ML/MIN Objective Remarks GENERAL: Extremely pleasant middle-aged black female in no acute distress. Daughter at bedside. HEENT: PERRLA, EOMI. No scleral icterus or conjunctival pallor. No lid lag or facial droop. CARDIOVASCULAR: Regular rate and rhythm. No obvious murmurs to auscultation. No chest tenderness to palpation. RESPIRATORY: No obvious rhonchi or wheezing. Clear to auscultation. Breath sounds equal bilaterally. GASTROINTESTINAL: Abdomen soft, non-tender, nondistended. BS normal. MUSCULOSKELETAL: Extremities without clubbing, Left leg with Orthotics in place. NEUROLOGICAL: Awake, alert and oriented x4. No focal neurologic deficits. Medications and IVs Current Medications Medications (Trade) Dose Ordered Sig/Shanon Route Start Time Stop Time Status Last Admin Sodium Chloride 1,000 ml @ 100 mls/hr Q10H IV 06/23/17 02:39 (NS Flush) 2 ml UNSCH PRN IV FLUSH 06/23/17 02:45 06/24/17 17:12 (NS Flush) 2 ml BID IV FLUSH 06/23/17 09:00 06/25/17 07:56 (Zofran Inj) 4 mg Q6H PRN IVP 06/23/17 02:45 (Tylenol) 650 mg Q6H PRN PO 06/23/17 02:45 (Stefanie-Colace) 1 tab BID PO 06/23/17 09:00 06/24/17 20:12 (Milk Of Magnesia Liq) 30 ml Q12H PRN PO 06/23/17 02:45 06/24/17 08:58 (Senokot) 17.2 mg Q12H PRN PO 06/23/17 02:45 06/24/17 08:58 (Dulcolax Supp) 10 mg DAILY PRN RECTAL 06/23/17 02:45 (Lactulose Liq) 30 ml DAILY PRN PO 06/23/17 02:45 06/24/17 08:58 (Norvasc) 5 mg DAILY PO 06/23/17 09:00 06/25/17 07:55 (SandIMMUNE) 75 mg BID PO 06/23/17 09:00 06/25/17 07:54 (Keppra) 250 mg BID PO 06/23/17 09:00 06/25/17 07:54 (Mag-Ox) 400 mg BID@0700,1900 PO 06/23/17 07:00 06/25/17 06:14 (Cellcept) 500 mg BID PO 06/23/17 09:00 06/25/17 07:54 (Protonix) 40 mg DAILY@0600 PO 06/23/17 06:00 06/25/17 06:14 Gentamicin Sulfate/Sodium Chloride 100 ml @ 200 mls/hr Q8H IV 06/23/17 11:00 06/25/17 02:28 Cefazolin Sodium/ Dextrose 50 ml @ 100 mls/hr Q8H IV 06/23/17 09:00 06/25/17 07:54 (Benadryl Inj) 25 mg Q6H PRN IV PUSH 06/23/17 09:30 06/25/17 06:14 ([place] 7.5-325 Mg) 1 tab Q4H PRN PO 06/23/17 17:00 06/25/17 07:55 (Duoneb Neb) 1 ampule Q4HR NEB NEB 06/23/17 20:00 06/25/17 04:36 (Mucinex Er) 600 mg BID PO 06/23/17 21:00 06/25/17 07:55 Lactated Ringer's 1,000 ml @ 30 mls/hr Q24H PRN IV 06/24/17 22:45 06/27/17 22:44 Sodium Chloride 500 ml @ 30 mls/hr [id number] PRN IV 06/24/17 22:45 06/27/17 22:44 (Betadine 5% Antisepsis Kit) 1 applic LOAN AND CREDIT MANAGER PRN EACH NARE 06/24/17 22:45 06/27/17 22:44 (Chlorhexidine 2% Cloth) 3 pack LOAN AND CREDIT MANAGER PRN TOPICAL 06/24/17 22:45 06/27/17 22:44 A/P Assessment and Plan 1. Open Ankle Fx: Left. S/p injury, Ankle X-ray w/ minimal displaced oblique fracture through base of medial malleolus, status post I and D, as per Doctor Darcy he prefer to have 2 negative cultures for ORIF. he will go to surgery tomorrow. on antibiotics as per Podiatry specialist Cefazolin and Gentamicin. 2. Liver Transplant Recipient: h/o Liver Transplant 2014. Stable. Resume home Cyclosporine and Mycophenolate. 3. Renal Insufficiency: Improving. 4. HTN: controlled. 5. Anemia: chronic iron deficiency anemia, today Hemoglobin 7.4 patient asymptomatic following. 6. Tobacco Abuse: Pt counselled. Ativan/NicoDerm prn if needed. Bronchodilator, Mucolytic and Incentive spirometry. 7. Hypokalemia replaced, Hypomagnesemia replacing. DVT Prophylaxis: Anticoagulation post op per Ortho Discharge Planning Once cleared by Podiatry specialist. Tacos Germain MD Jun 25, 2017 08:55
[2017-06-25] MEDS ORDERED: PROPOFOL 200 MG/20 ML AMP IV ONE (12:00)
[2017-06-25] MEDS ORDERED: ONDANSETRON HCL 4 MG/2 ML VIAL IV PUSH ONE (12:00)
[2017-06-25] MEDS ORDERED: BUPIVACAINE HCL PF 0.5% 30 ML VIAL ONE (16:37)
[2017-06-25] MEDS ORDERED: BUPIVACAINE HCL PF 0.25% 30 ML VIAL ONE (16:37)
[2017-06-25] MEDS ORDERED: GENTAMICIN SULFATE 80 MG/2 ML VIAL ONE (16:37)
[2017-06-25] MEDS ORDERED: POTASSIUM CHLORIDE 20 MEQ CONTROLLED RELEASE TAB PO ONE (16:45)
[2017-06-25] MEDS ORDERED: ceFAZolin INJ 1,000 MG VIAL ONE (17:50)
[2017-06-25] MEDS ORDERED: DO NOT ADM ANY ANTICOAGULANT DRUGS PRN (19:12)
--- NOTE | 2017-06-25 19:17 | HHI.PR ---
Immediate Post Op Note Procedure Date: Jun 25, 2017 Pre Op Diagnosis: 1. Laceration left lateral leg 2. Open left medial malleolus fracture Post Op Diagnosis: same Surgeon: Raoul Daniels DPM Control Panel Assembler(s): staff Procedure: 1. repair of laceration left lateral leg 2. ORIF left medial malleolus fracture Findings: consistent with diagnosis. Open wound to lateral L leg 5cm length, down to subcutaneous tissue. Irrigated and closed with 2-0 nylon. 12cm laceration at level of medial malleolus with visible medial malleolus fracture noted. No gross contamination. Cultures negative so far. ORIF with 2 x 68mm 4.0 cannulated synthes screws. Reduction confirmed with C- arm and hardware placement confirmed with c-arm. Ankle joint ROM full and without hardware interference, confirmed with c-arm exam. Closure wtih 3-0 vicryl and 3-0 nylon, followed by xeroform, 4x4, cast padding, cling, posterior splint, lalitha x 2. NWB LLE. Ok to ambulate with walker for assistance. Consulted case technician to arrange twice weekly dressing changes with home health. Follow up 2 weeks to assess for suture removal. Needs 2 weeks oral broad spectrum antibiotics upon d/c. Ok to d/c per podiatry when tolerating PO pain medication. Additional Information: n/a Complications: none Specimen(s) removed: none Estimated blood loss: minimal Anesthesia: General, Local (10mL 0.5% marcaine plain.) Drains: None Tourniquet time (min at mmHg) L calf @250mmHg x 3 minutes Patient to: PACU Patient Condition: Good Implant/Devices: SEE IMPLANT LOG (if applicable) Date/Time of Procedure: SEE SURGICAL CARE RECORD Raoul Daniels DPM Jun 25, 2017 19:17
[2017-06-25] MEDS ORDERED: *morphine SULFATE 8 MG/ML PERIprocedure ONLY ONE (19:29)
--- NOTE | 2017-06-25 19:51 | RADRPT ---
EXAM DATE/TIME: 06/25/2017 18:41 [facility] COMPARISON: ANKLE LEFT COMPLETE ([id number]), June 23, 2017, 0:25. INDICATIONS : ORIF lt ankle. MEDICAL HISTORY : None. SURGICAL HISTORY : None. ENCOUNTER: Subsequent ACUITY: 1 day PAIN SCORE: Non-responsive. LOCATION: Left Ankle FINDINGS: Three view exam was performed of the left ankle. 6 images from the OR have been submitted. 2 screws a re seen to extend through the medial malleolus and into the distal tibia. These successfully reduce t he previously seen medial malleolus fracture. The ankle appears normally aligned. CONCLUSION: Successful ORIF. Néstor Thomas MD on June 25, 2017 at 19:41 Board Certified Radiologist. This report was verified electronically.
--- NOTE | 2017-06-25 20:15 | RADRPT ---
EXAM DATE/TIME: 06/25/2017 19:21 [facility] COMPARISON: ANKLE LEFT COMPLETE ([id number]), June 25, 2017, 18:41. INDICATIONS : Status post op ORIF lt ankle. MEDICAL HISTORY : None. SURGICAL HISTORY : None. ENCOUNTER: Initial ACUITY: 1 day PAIN SCORE: Non-responsive. LOCATION: Left Ankle FINDINGS: Three view exam was performed of the left ankle. 2 screws are seen to extend through the medial malle olus into the distal posterior aspect of the tibia successfully reducing the medial malleolus fractur e. The screws do extend beyond the lateral posterior tibial margin. The fibula is intact. The ankles normally aligned. There is a calcaneal spur at the Achilles attachment site. CONCLUSION: Successful ORIF. Néstor Thomas MD on June 25, 2017 at 20:12 Board Certified Radiologist. This report was verified electronically.
[2017-06-26] VITALS (9 sets, daily range): BP systolic 119–157; BP diastolic 59–78; PULSE 80–91; RESP 16–18; TEMP 97.6–99.1; O2SAT 92–99
[2017-06-26] MEDS: ceFAZolin 2 GM PREMIX 50 ML IV SCH ×3 (00:46→16:20)
[2017-06-26] MEDS: ACETAMINOPHEN/HYDROcodone 325 MG/7.5 MG TAB PO PRN ×6 (00:46→21:02)
[2017-06-26] MEDS: GENTAMICIN 80 MG PREMIX 100 ML IV SCH ×3 (02:29→18:34)
[2017-06-26] MEDS: diphenhydrAMINE HCL 50 MG/ML VIAL IV PUSH PRN ×3 (02:29→16:20)
[2017-06-26] MEDS: RESP: ALBUTEROL 2.5 MG/IPRATROPIUM 0.5 MG NEB (SCH) NEB ×6 (04:16→20:46)
[2017-06-26] MEDS: MAGNESIUM OXIDE 400 MG TAB PO SCH ×2 (04:31→18:34)
[2017-06-26] MEDS: PANTOPRAZOLE SOD 40 MG DELAYED RELEASE TAB PO SCH (04:31)
[2017-06-26] MEDS: levETIRAcetam 250 MG TAB PO SCH ×2 (08:14→20:59)
[2017-06-26] MEDS: amLODIPine BESYLATE 5 MG TAB PO SCH (08:15)
[2017-06-26] MEDS: DOCUSATE SODIUM 50 MG/SENNA 8.6 MG TAB PO SCH ×2 (08:15→20:59)
[2017-06-26] MEDS: MYCOPHENOLATE MOFETIL 250 MG CAP PO SCH ×2 (08:15→20:59)
[2017-06-26] MEDS: cycloSPORINE 25 MG CAP PO SCH ×2 (08:15→21:00)
[2017-06-26] MEDS: guaiFENesin E.R. 600 MG TAB PO SCH ×2 (08:15→20:59)
[2017-06-26] MEDS: SODIUM CHLORIDE 0.9% FLUSH 10 ML FLUSH IV FLUSH SCH ×2 (08:30→20:50)
--- NOTE | 2017-06-26 09:40 | HHI.PR ---
Subjective Remarks This is a pleasant 66 y/o Female with Hypertension, Seizure disorder, CVA, Liver transplant, Tobacco dependence status post fall and left ankle injury, Foot X-ray with mild soft tissue air posterior to the distal leg. Ankle X-ray minimally displaced oblique fracture base medial malleolus. with Diagnosis of Left Ankle fracture Open and Laceration of the Left lateral leg, status post I and D of Open Left ankle fracture, repair of Laceration of Left lateral leg. 06/26: Seen in her bedroom with Diagnosis of Laceration left lateral leg, and Open left medial malleolus fracture, status post repair of laceration left lateral leg and ORIF left medial malleolus fracture. by Doctor Raoul Daniels 06/25/17 recommended to ambulate with walker for assistance, follow up in 2 weeks in her office and assess for suture removal needs two weeks of broad spectrum antibiotics upon discharge. okay to discharge as per Podiatry specialist once tolerating BY mouth Pain medicines. Objective Vital Signs Date Time Temp Pulse Resp B/P (MAP) Pulse Ox O2 Delivery O2 Flow Rate FiO2 06/26/17 08:46 97 06/26/17 07:33 99.1 84 18 134/65 (88) 96 06/26/17 04:19 92 06/26/17 03:13 95 Nasal Cannula 2.00 06/26/17 03:05 98.9 80 18 157/75 (102) 95 06/25/17 23:50 98.9 81 18 134/71 (92) 95 06/25/17 20:25 97.3 80 18 153/68 (96) 97 06/25/17 20:00 81 19 143/70 (94) 91 Nasal Cannula 2 06/25/17 19:45 68 22 139/68 (91) 91 Nasal Cannula 2 06/25/17 19:35 26 06/25/17 19:30 76 26 134/68 (90) 92 Nasal Cannula 2 06/25/17 19:16 79 23 134/62 (86) 91 Nasal Cannula 2 06/25/17 19:14 98.2 77 24 120/64 (82) 92 Nasal Cannula 2 06/25/17 15:27 98.8 74 18 129/69 (89) 97 06/25/17 11:29 97 06/25/17 10:56 98.5 82 17 119/59 (79) 97 I/O 06/25/17 06/25/17 06/25/17 06/26/17 06/26/17 06/26/17 06:59 14:59 22:59 06:59 14:59 22:59 Intake Total 50 ml 220 ml 1040 ml 360 ml Output Total 25 ml Balance 50 ml 220 ml 1015 ml 360 ml Intake Oral 0 ml 220 ml 240 ml 360 ml IV Total 50 ml Other 800 ml Output Estimated Blood Loss 25 ml # Voids 4 3 1 2 # Bowel Movements 0 0 0 0 Result Diagram: 06/25/1715 06/25/1715 Imaging Last Impressions Ankle X-Ray 06/25/17 0000 Signed Impressions: Service Date/Time: Sunday, June 25, 2017 19:21 - CONCLUSION: Successful ORIF. Néstor Thomas MD Lower Extremity CT 06/23/17 0417 Signed Impressions: Service Date/Time: Friday, June 23, 2017 12:09 - CONCLUSION: Fracture the medial malleolus as described above. Nura Alatorre MD FACR Foot X-Ray 06/23/17 000 Signed Impressions: Service Date/Time: Friday, June 23, 2017 00:31 - CONCLUSION: 1. Mild soft tissue air posterior to the distal leg only visualized on the lateral projection. 2. No acute osseous abnormality is identified within the foot. Néstor Lindsey MD Chest X-Ray 06/23/17 000 Signed Impressions: Service Date/Time: Friday, June 23, 2017 00:23 - CONCLUSION: No acute cardiopulmonary abnormality is identified. Néstor Lindsey MD Procedures With Diagnosis of Left Ankle fracture Open and Laceration of the Left lateral leg, status post I and D of Open Left ankle fracture, repair of Laceration of Left lateral leg. 06/23/17 Other Results Laboratory Tests Test 06/23/17 00:15 06/24/17 06:31 06/25/17 06:15 Prothrombin Time 9.7 SEC Prothromb Time International Ratio 0.9 RATIO Activated Partial Thromboplast Time 23.9 SEC Blood Urea Nitrogen 9 MG/DL 9 MG/DL 8 MG/DL Creatinine 1.12 MG/DL 1.06 MG/DL 0.97 MG/DL Random Glucose 92 MG/DL 88 MG/DL 88 MG/DL Total Protein 7.0 GM/DL 6.9 GM/DL Albumin 2.6 GM/DL 2.6 GM/DL Calcium Level 8.4 MG/DL 8.6 MG/DL 9.1 MG/DL Magnesium Level 1.7 MG/DL Alkaline Phosphatase 242 U/L 198 U/L Aspartate Amino Transf (AST/SGOT) 46 U/L 27 U/L Alanine Aminotransferase (ALT/SGPT) 16 U/L 12 U/L Total Bilirubin 0.6 MG/DL 0.9 MG/DL Sodium Level 141 MEQ/L 141 MEQ/L 141 MEQ/L Potassium Level 4.4 MEQ/L 3.7 MEQ/L 3.6 MEQ/L Chloride Level 114 MEQ/L 110 MEQ/L 111 MEQ/L Carbon Dioxide Level 18.5 MEQ/L 20.0 MEQ/L 20.7 MEQ/L White Blood Count 5.8 TH/MM3 Red Blood Count 2.80 MIL/MM3 Hemoglobin 7.4 GM/DL Hematocrit 23.0 % Mean Corpuscular Volume 82.1 FL Mean Corpuscular Hemoglobin 26.4 PG Mean Corpuscular Hemoglobin Concent 32.1 % Red Cell Distribution Width 16.9 % Platelet Count 188 TH/MM3 Mean Platelet Volume 8.5 FL Neutrophils (%) (Auto) 56.9 % Lymphocytes (%) (Auto) 33.2 % Monocytes (%) (Auto) 8.3 % Eosinophils (%) (Auto) 1.2 % Basophils (%) (Auto) 0.4 % Neutrophils # (Auto) 3.3 TH/MM3 Lymphocytes # (Auto) 1.9 TH/MM3 Monocytes # (Auto) 0.5 TH/MM3 Eosinophils # (Auto) 0.1 TH/MM3 Basophils # (Auto) 0.0 TH/MM3 CBC Comment DIFF FINAL Differential Comment Anion Gap 9 MEQ/L Estimat Glomerular Filtration Rate 69 ML/MIN Objective Remarks GENERAL: Extremely pleasant middle-aged black female in no acute distress. Daughter at bedside. HEENT: PERRLA, EOMI. No scleral icterus or conjunctival pallor. No lid lag or facial droop. CARDIOVASCULAR: Regular rate and rhythm. No obvious murmurs to auscultation. No chest tenderness to palpation. RESPIRATORY: No obvious rhonchi or wheezing. Clear to auscultation. Breath sounds equal bilaterally. GASTROINTESTINAL: Abdomen soft, non-tender, nondistended. BS normal. MUSCULOSKELETAL: Extremities without clubbing, Left leg with Orthotics in place. NEUROLOGICAL: Awake, alert and oriented x4. No focal neurologic deficits. Medications and IVs Current Medications Medications (Trade) Dose Ordered Sig/Shanon Route Start Time Stop Time Status Last Admin Sodium Chloride 1,000 ml @ 100 mls/hr Q10H IV 06/23/17 02:39 06/25/17 19:45 (NS Flush) 2 ml UNSCH PRN IV FLUSH 06/23/17 02:45 06/24/17 17:12 (NS Flush) 2 ml BID IV FLUSH 06/23/17 09:00 06/25/17 20:36 (Zofran Inj) 4 mg Q6H PRN IVP 06/23/17 02:45 (Tylenol) 650 mg Q6H PRN PO 06/23/17 02:45 (Stefanie-Colace) 1 tab BID PO 06/23/17 09:00 06/26/17 08:15 (Milk Of Magnesia Liq) 30 ml Q12H PRN PO 06/23/17 02:45 06/24/17 08:58 (Senokot) 17.2 mg Q12H PRN PO 06/23/17 02:45 06/24/17 08:58 (Dulcolax Supp) 10 mg DAILY PRN RECTAL 06/23/17 02:45 (Lactulose Liq) 30 ml DAILY PRN PO 06/23/17 02:45 06/24/17 08:58 (Norvasc) 5 mg DAILY PO 06/23/17 09:00 06/26/17 08:15 (SandIMMUNE) 75 mg BID PO 06/23/17 09:00 06/26/17 08:15 (Keppra) 250 mg BID PO 06/23/17 09:00 06/26/17 08:14 (Mag-Ox) 400 mg BID@0700,1900 PO 06/23/17 07:00 06/26/17 04:31 (Cellcept) 500 mg BID PO 06/23/17 09:00 06/26/17 08:15 (Protonix) 40 mg DAILY@0600 PO 06/23/17 06:00 06/26/17 04:31 Gentamicin Sulfate/Sodium Chloride 100 ml @ 200 mls/hr Q8H IV 06/23/17 11:00 06/26/17 02:29 Cefazolin Sodium/ Dextrose 50 ml @ 100 mls/hr Q8H IV 06/23/17 09:00 06/26/17 08:14 (Benadryl Inj) 25 mg Q6H PRN IV PUSH 06/23/17 09:30 06/26/17 08:15 ([place] 7.5-325 Mg) 1 tab Q4H PRN PO 06/23/17 17:00 06/26/17 08:16 (Duoneb Neb) 1 ampule Q4HR NEB NEB 06/23/17 20:00 06/26/17 08:46 (Mucinex Er) 600 mg BID PO 06/23/17 21:00 06/26/17 08:15 Lactated Ringer's 1,000 ml @ 30 mls/hr Q24H PRN IV 06/24/17 22:45 06/27/17 22:44 Sodium Chloride 500 ml @ 30 mls/hr [id number] PRN IV 06/24/17 22:45 06/27/17 22:44 (Betadine 5% Antisepsis Kit) 1 applic CASTING TECHNICIAN PRN EACH NARE 06/24/17 22:45 06/27/17 22:44 (Chlorhexidine 2% Cloth) 3 pack CASTING TECHNICIAN PRN TOPICAL 06/24/17 22:45 06/27/17 22:44 Miscellaneous Information ALL NURSING DEPARTME... UNSCH PRN .XX 06/25/17 19:12 06/26/17 19:11 A/P Assessment and Plan 1. Open Ankle Fx: Left. S/p injury, Ankle X-ray w/ minimal displaced oblique fracture through base of medial malleolus, status post I and D, as per Doctor Taveras he prefer to have 2 negative cultures for ORIF. With Diagnosis of Laceration left lateral leg, and Open left medial malleolus fracture, status post repair of laceration left lateral leg and ORIF left medial malleolus fracture. by Doctor Raoul Daniels 06/25/17 recommended to ambulate with walker for assistance, follow up in 2 weeks in her office and assess for suture removal needs two weeks of broad spectrum antibiotics upon discharge. okay to discharge as per Podiatry specialist once tolerating BY mouth Pain medicines. Discussed with assistant site manager due to Insurance Issues, the patient will need to get better Mobility for her to be able to discharge Home. not safe discharge at this time, 2. Liver Transplant Recipient: h/o Liver Transplant 2014. Stable. Resume home Cyclosporine and Mycophenolate. 3. Renal Insufficiency: Improved 4. HTN: controlled. 5. Anemia: chronic iron deficiency anemia, today Hemoglobin 7.4 patient asymptomatic following. 6. Tobacco Abuse: Pt counselled. Ativan/NicoDerm prn if needed. Bronchodilator, Mucolytic and Incentive spirometry. 7. Hypokalemia replaced, Hypomagnesemia replaced and following. DVT Prophylaxis: Heparin. Discharge Planning once assistant site manager set the patient for discharge. Okay to discharge from medicine standpoint. Tacos Germain MD Jun 26, 2017 09:39
[2017-06-26] MEDS: SODIUM CHLOR 0.9% 1000 ML INJ 1,000 ML IV SCH ×2 (10:39→21:04)
--- NOTE | 2017-06-26 15:13 | PD.POD ---
Subjective Pain score: 3 Remarks doing good want to go home in the AM, some pain. Past Med/Surg/Social History Past Medical History Cardiovascular: REPORTS HX OF: Hypertension Gastrointestinal: REPORTS HX OF: Liver disease Past Surgical History Gastrointestinal: REPORTS HX OF: Hernia repair, Other GI surgery (liver transplant) Musculoskeletal: REPORTS HX OF: Other musculoskeletal srg (nerve and tendon repair, right wrist) Social History Smoking Status: Current Every Day Smoker Objective Vital Signs Vital Signs Date Time Temp Pulse Resp B/P (MAP) Pulse Ox O2 Delivery O2 Flow Rate FiO2 06/26/17 11:26 98.7 91 18 119/59 (79) 99 06/26/17 08:46 97 06/26/17 07:33 99.1 84 18 134/65 (88) 96 06/26/17 04:19 92 06/26/17 03:13 95 Nasal Cannula 2.00 06/26/17 03:05 98.9 80 18 157/75 (102) 95 06/25/17 23:50 98.9 81 18 134/71 (92) 95 06/25/17 20:25 97.3 80 18 153/68 (96) 97 06/25/17 20:00 81 19 143/70 (94) 91 Nasal Cannula 2 06/25/17 19:45 68 22 139/68 (91) 91 Nasal Cannula 2 06/25/17 19:35 26 06/25/17 19:30 76 26 134/68 (90) 92 Nasal Cannula 2 06/25/17 19:16 79 23 134/62 (86) 91 Nasal Cannula 2 06/25/17 19:14 98.2 77 24 120/64 (82) 92 Nasal Cannula 2 06/25/17 15:27 98.8 74 18 129/69 (89) 97 Coded Allergies: shellfish derived (Unverified Allergy, Severe, 06/23/17) Medications and IVs Administered Medications Medications (Trade) Dose Ordered Sig/Shanon Route PRN Reason Start Time Stop Time Status Last Admin Dose Admin Sodium Chloride 1,000 ml @ 100 mls/hr Q10H IV 06/23/17 02:39 06/25/17 19:45 Sodium Chloride (NS Flush) 2 ml UNSCH PRN IV FLUSH FLUSH AFTER USING IV ACCESS 06/23/17 02:45 06/24/17 17:12 Sodium Chloride (NS Flush) 2 ml BID IV FLUSH 06/23/17 09:00 06/25/17 20:36 Senna/Docusate Sodium (Stefanie-Colace) 1 tab BID PO 06/23/17 09:00 06/26/17 08:15 Magnesium Hydroxide (Milk Of Magnesia Liq) 30 ml Q12H PRN PO MILD - MODERATE CONSTIPATION 06/23/17 02:45 06/24/17 08:58 Sennosides (Senokot) 17.2 mg Q12H PRN PO MODERATE - SEVERE CONSTIPATION 06/23/17 02:45 06/24/17 08:58 Lactulose (Lactulose Liq) 30 ml DAILY PRN PO SEVERE CONSITIPATION 06/23/17 02:45 06/24/17 08:58 Amlodipine Besylate (Norvasc) 5 mg DAILY PO 06/23/17 09:00 06/26/17 08:15 Cyclosporine (SandIMMUNE) 75 mg BID PO 06/23/17 09:00 06/26/17 08:15 Levetriacetam (Keppra) 250 mg BID PO 06/23/17 09:00 06/26/17 08:14 Magnesium Oxide (Mag-Ox) 400 mg BID@0700,1900 PO 06/23/17 07:00 06/26/17 04:31 Mycophenolate Mofetil (Cellcept) 500 mg BID PO 06/23/17 09:00 06/26/17 08:15 Pantoprazole Sodium (Protonix) 40 mg DAILY@0600 PO 06/23/17 06:00 06/26/17 04:31 Gentamicin Sulfate/Sodium Chloride 100 ml @ 200 mls/hr Q8H IV 06/23/17 11:00 06/26/17 11:19 Cefazolin Sodium/ Dextrose 50 ml @ 100 mls/hr Q8H IV 06/23/17 09:00 06/26/17 08:14 Diphenhydramine HCl (Benadryl Inj) 25 mg Q6H PRN IV PUSH ITCHING 06/23/17 09:30 06/26/17 08:15 Acetaminophen/ Hydrocodone Bitart ([place] 7.5-325 Mg) 1 tab Q4H PRN PO PAIN SCALE 6 TO 10 06/23/17 17:00 8/31/17 12:03 Albuterol/ Ipratropium (Duoneb Neb) 1 ampule Q4HR NEB NEB 06/23/17 20:00 06/26/17 12:24 Guaifenesin (Mucinex Er) 600 mg BID PO 06/23/17 21:00 06/26/17 08:15 Other Results Laboratory Tests Test 06/25/17 06:15 White Blood Count 5.8 TH/MM3 Red Blood Count 2.80 MIL/MM3 Hemoglobin 7.4 GM/DL Hematocrit 23.0 % Mean Corpuscular Volume 82.1 FL Mean Corpuscular Hemoglobin 26.4 PG Mean Corpuscular Hemoglobin Concent 32.1 % Red Cell Distribution Width 16.9 % Platelet Count 188 TH/MM3 Mean Platelet Volume 8.5 FL Neutrophils (%) (Auto) 56.9 % Lymphocytes (%) (Auto) 33.2 % Monocytes (%) (Auto) 8.3 % Eosinophils (%) (Auto) 1.2 % Basophils (%) (Auto) 0.4 % Neutrophils # (Auto) 3.3 TH/MM3 Lymphocytes # (Auto) 1.9 TH/MM3 Monocytes # (Auto) 0.5 TH/MM3 Eosinophils # (Auto) 0.1 TH/MM3 Basophils # (Auto) 0.0 TH/MM3 CBC Comment DIFF FINAL Differential Comment Laboratory Tests Test 06/25/17 06:15 Blood Urea Nitrogen 8 MG/DL Creatinine 0.97 MG/DL Random Glucose 88 MG/DL Calcium Level 9.1 MG/DL Sodium Level 141 MEQ/L Potassium Level 3.6 MEQ/L Chloride Level 111 MEQ/L Carbon Dioxide Level 20.7 MEQ/L Anion Gap 9 MEQ/L Estimat Glomerular Filtration Rate 69 ML/MIN Intra Op Wd Cx no growth Physical Exam Remarks Left LE: Splint intact no bleeding/drainage, good ROM of toes all toes pink and warm Assessment & Plan A/P Left open ankle fracture SP ORIF 06/25 Dr Daniels. Ok to DC in AM, HH for woundcare, ordered wheelchair, see orders. Gomez Taveras DPM Jun 26, 2017 15:13
[2017-06-26] MEDS: HEPARIN SODIUM - SQ 10,000 UNITS/ML VIAL SQ SCH (21:00)
[2017-06-27] VITALS (9 sets, daily range): BP systolic 119–143; BP diastolic 59–72; PULSE 67–100; RESP 16–17; TEMP 96.8–99.3; O2SAT 95–100
[2017-06-27] MEDS: GENTAMICIN 80 MG PREMIX 100 ML IV SCH (01:48)
[2017-06-27] MEDS: ACETAMINOPHEN/HYDROcodone 325 MG/7.5 MG TAB PO PRN ×6 (01:48→22:00)
[2017-06-27] MEDS: ceFAZolin 2 GM PREMIX 50 ML IV SCH ×2 (01:48→09:29)
[2017-06-27] MEDS: RESP: ALBUTEROL 2.5 MG/IPRATROPIUM 0.5 MG NEB (SCH) NEB ×4 (03:20→12:39)
[2017-06-27] MEDS: PANTOPRAZOLE SOD 40 MG DELAYED RELEASE TAB PO SCH (05:51)
[2017-06-27] MEDS: MAGNESIUM OXIDE 400 MG TAB PO SCH ×2 (05:51→19:00)
[2017-06-27] MEDS: SODIUM CHLOR 0.9% 1000 ML INJ 1,000 ML IV SCH ×2 (05:52→16:39)
[2017-06-27] MEDS: HEPARIN SODIUM - SQ 10,000 UNITS/ML VIAL SQ SCH ×3 (05:53→20:38)
[2017-06-27 07:42] LABS: BICARBONATE 21.2 MEQ/L (21.0-32.0); MAGNESIUM 1.5 MG/DL (1.5-2.5); POTASSIUM 3.7 MEQ/L (3.5-5.1)
[2017-06-27] MEDS: cycloSPORINE 25 MG CAP PO SCH ×2 (09:00→20:39)
[2017-06-27] MEDS: DOCUSATE SODIUM 50 MG/SENNA 8.6 MG TAB PO SCH ×2 (09:29→20:39)
[2017-06-27] MEDS: levETIRAcetam 250 MG TAB PO SCH ×2 (09:29→20:38)
[2017-06-27] MEDS: guaiFENesin E.R. 600 MG TAB PO SCH ×2 (09:29→20:38)
[2017-06-27] MEDS: MYCOPHENOLATE MOFETIL 250 MG CAP PO SCH ×2 (09:29→20:38)
[2017-06-27] MEDS: amLODIPine BESYLATE 5 MG TAB PO SCH (09:30)
[2017-06-27] MEDS: SODIUM CHLORIDE 0.9% FLUSH 10 ML FLUSH IV FLUSH SCH ×2 (09:30→20:39)
[2017-06-27] MEDS: diphenhydrAMINE HCL 50 MG/ML VIAL IV PUSH PRN (09:40)
--- NOTE | 2017-06-27 10:17 | HHI.PR ---
Subjective Remarks This is a pleasant 66 y/o Female with Hypertension, Seizure disorder, CVA, Liver transplant, Tobacco dependence status post fall and left ankle injury, Foot X-ray with mild soft tissue air posterior to the distal leg. Ankle X-ray minimally displaced oblique fracture base medial malleolus. with Diagnosis of Left Ankle fracture Open and Laceration of the Left lateral leg, status post I and D of Open Left ankle fracture, repair of Laceration of Left lateral leg. 06/26: Seen in her bedroom with Diagnosis of Laceration left lateral leg, and Open left medial malleolus fracture, status post repair of laceration left lateral leg and ORIF left medial malleolus fracture. by Doctor Raoul Daniels 06/25/17 recommended to ambulate with walker for assistance, follow up in 2 weeks in her office and assess for suture removal needs two weeks of broad spectrum antibiotics upon discharge. okay to discharge as per Podiatry specialist once tolerating BY mouth Pain medicines. 06/27: Stable in her bedroom no new issues, no nausea, vomit or diarrhea, okay to discharge from Medicine standpoint and from Orthopedic Surgery standpoint. Objective Vital Signs Date Time Temp Pulse Resp B/P (MAP) Pulse Ox O2 Delivery O2 Flow Rate FiO2 06/27/17 08:43 95 06/27/17 08:00 98.4 70 16 134/71 (92) 97 06/27/17 03:23 100 06/27/17 00:00 99.3 86 17 143/71 (95) 99 06/26/17 20:48 99 21 06/26/17 20:00 97.6 84 16 130/78 (95) 97 06/26/17 15:24 98.8 85 17 128/64 (85) 97 06/26/17 11:26 98.7 91 18 119/59 (79) 99 I/O 06/26/17 06/26/17 06/26/17 06/27/17 06/27/17 06/27/17 06:59 14:59 22:59 06:59 14:59 22:59 Intake Total 360 ml 1754 ml 635 ml Balance 360 ml 1754 ml 635 ml Intake Oral 360 ml 1520 ml 480 ml IV Total 234 ml 155 ml # Voids 2 7 1 # Bowel Movements 0 0 Result Diagram: 06/25/17 0615 06/27/17 0632 Imaging Last Impressions Ankle X-Ray 06/25/17 0000 Signed Impressions: Service Date/Time: Sunday, June 25, 2017 19:21 - CONCLUSION: Successful ORIF. Néstor Thomas MD Lower Extremity CT 06/23/17 0417 Signed Impressions: Service Date/Time: Friday, June 23, 2017 12:09 - CONCLUSION: Fracture the medial malleolus as described above. Nura Alatorre MD FACR Foot X-Ray 06/23/17 000 Signed Impressions: Service Date/Time: Friday, June 23, 2017 00:31 - CONCLUSION: 1. Mild soft tissue air posterior to the distal leg only visualized on the lateral projection. 2. No acute osseous abnormality is identified within the foot. Néstor Lindsey MD Chest X-Ray 06/23/17 0009 Signed Impressions: Service Date/Time: Friday, June 23, 2017 00:23 - CONCLUSION: No acute cardiopulmonary abnormality is identified. Néstor Lindsey MD Procedures With Diagnosis of Left Ankle fracture Open and Laceration of the Left lateral leg, status post I and D of Open Left ankle fracture, repair of Laceration of Left lateral leg. 06/23/17 Other Results Laboratory Tests Test 06/23/17 00:15 06/24/17 06:31 06/25/17 06:15 06/27/17 06:32 Prothrombin Time 9.7 SEC Prothromb Time International Ratio 0.9 RATIO Activated Partial Thromboplast Time 23.9 SEC Blood Urea Nitrogen 9 MG/DL 10 MG/DL Creatinine 1.06 MG/DL 1.23 MG/DL Random Glucose 88 MG/DL 117 MG/DL Total Protein 6.9 GM/DL Albumin 2.6 GM/DL Calcium Level 8.6 MG/DL 9.2 MG/DL Alkaline Phosphatase 198 U/L Aspartate Amino Transf (AST/SGOT) 27 U/L Alanine Aminotransferase (ALT/SGPT) 12 U/L Total Bilirubin 0.9 MG/DL Sodium Level 141 MEQ/L 140 MEQ/L Potassium Level 3.7 MEQ/L 3.7 MEQ/L Chloride Level 110 MEQ/L 109 MEQ/L Carbon Dioxide Level 20.0 MEQ/L 21.2 MEQ/L White Blood Count 5.8 TH/MM3 Red Blood Count 2.80 MIL/MM3 Hemoglobin 7.4 GM/DL Hematocrit 23.0 % Mean Corpuscular Volume 82.1 FL Mean Corpuscular Hemoglobin 26.4 PG Mean Corpuscular Hemoglobin Concent 32.1 % Red Cell Distribution Width 16.9 % Platelet Count 188 TH/MM3 Mean Platelet Volume 8.5 FL Neutrophils (%) (Auto) 56.9 % Lymphocytes (%) (Auto) 33.2 % Monocytes (%) (Auto) 8.3 % Eosinophils (%) (Auto) 1.2 % Basophils (%) (Auto) 0.4 % Neutrophils # (Auto) 3.3 TH/MM3 Lymphocytes # (Auto) 1.9 TH/MM3 Monocytes # (Auto) 0.5 TH/MM3 Eosinophils # (Auto) 0.1 TH/MM3 Basophils # (Auto) 0.0 TH/MM3 CBC Comment DIFF FINAL Differential Comment Magnesium Level 1.5 MG/DL Anion Gap 10 MEQ/L Estimat Glomerular Filtration Rate 53 ML/MIN Objective Remarks GENERAL: Extremely pleasant middle-aged black female in no acute distress. Daughter at bedside. HEENT: PERRLA, EOMI. No scleral icterus or conjunctival pallor. No lid lag or facial droop. CARDIOVASCULAR: Regular rate and rhythm. No obvious murmurs to auscultation. No chest tenderness to palpation. RESPIRATORY: No obvious rhonchi or wheezing. Clear to auscultation. Breath sounds equal bilaterally. GASTROINTESTINAL: Abdomen soft, non-tender, nondistended. BS normal. MUSCULOSKELETAL: Extremities without clubbing, Left leg with Orthotics in place. NEUROLOGICAL: Awake, alert and oriented x4. No focal neurologic deficits. Medications and IVs Current Medications Medications (Trade) Dose Ordered Sig/Shanon Route Start Time Stop Time Status Last Admin Sodium Chloride 1,000 ml @ 100 mls/hr Q10H IV 06/23/17 02:39 06/26/17 21:04 (NS Flush) 2 ml UNSCH PRN IV FLUSH 06/23/17 02:45 06/24/17 17:12 (NS Flush) 2 ml BID IV FLUSH 06/23/17 09:00 06/27/17 09:30 (Zofran Inj) 4 mg Q6H PRN IVP 06/23/17 02:45 (Tylenol) 650 mg Q6H PRN PO 06/23/17 02:45 (Stefanie-Colace) 1 tab BID PO 06/23/17 09:00 06/27/17 09:29 (Milk Of Magnesia Liq) 30 ml Q12H PRN PO 06/23/17 02:45 06/24/17 08:58 (Senokot) 17.2 mg Q12H PRN PO 06/23/17 02:45 06/24/17 08:58 (Dulcolax Supp) 10 mg DAILY PRN RECTAL 06/23/17 02:45 (Lactulose Liq) 30 ml DAILY PRN PO 06/23/17 02:45 06/24/17 08:58 (Norvasc) 5 mg DAILY PO 06/23/17 09:00 06/27/17 09:30 (SandIMMUNE) 75 mg BID PO 06/23/17 09:00 06/27/17 09:00 (Keppra) 250 mg BID PO 06/23/17 09:00 06/27/17 09:29 (Mag-Ox) 400 mg BID@0700,1900 PO 06/23/17 07:00 06/27/17 05:51 (Cellcept) 500 mg BID PO 06/23/17 09:00 06/27/17 09:29 (Protonix) 40 mg DAILY@0600 PO 06/23/17 06:00 06/27/17 05:51 Gentamicin Sulfate/Sodium Chloride 100 ml @ 200 mls/hr Q8H IV 06/23/17 11:00 06/27/17 01:48 Cefazolin Sodium/ Dextrose 50 ml @ 100 mls/hr Q8H IV 06/23/17 09:00 06/27/17 09:29 (Benadryl Inj) 25 mg Q6H PRN IV PUSH 06/23/17 09:30 06/27/17 09:40 ([place] 7.5-325 Mg) 1 tab Q4H PRN PO 06/23/17 17:00 06/27/17 05:51 (Duoneb Neb) 1 ampule Q4HR NEB NEB 06/23/17 20:00 06/27/17 08:41 (Mucinex Er) 600 mg BID PO 06/23/17 21:00 06/27/17 09:29 Lactated Ringer's 1,000 ml @ 30 mls/hr Q24H PRN IV 06/24/17 22:45 06/27/17 22:44 Sodium Chloride 500 ml @ 30 mls/hr [id number] PRN IV 06/24/17 22:45 06/27/17 22:44 (Betadine 5% Antisepsis Kit) 1 applic CHANGE MANAGEMENT ADMINISTRATOR PRN EACH NARE 06/24/17 22:45 06/27/17 22:44 (Chlorhexidine 2% Cloth) 3 pack CHANGE MANAGEMENT ADMINISTRATOR PRN TOPICAL 06/24/17 22:45 06/27/17 22:44 (Heparin Inj) 5,000 units Q8HR SQ 06/26/17 22:00 06/27/17 05:53 A/P Assessment and Plan 1. Open Ankle Fx: Left. S/p injury, Ankle X-ray w/ minimal displaced oblique fracture through base of medial malleolus, status post I and D, as per Doctor Darcy he prefer to have 2 negative cultures for ORIF. With Diagnosis of Laceration left lateral leg, and Open left medial malleolus fracture, status post repair of laceration left lateral leg and ORIF left medial malleolus fracture. by Doctor Raoul Daniels 06/25/17 recommended to ambulate with walker for assistance, follow up in 2 weeks in her office and assess for suture removal needs two weeks of broad spectrum antibiotics upon discharge. okay to discharge as per Podiatry specialist once tolerating BY mouth Pain medicines. Discussed with Outreach Rep okay to discharge given a Wheelchair and will go home with [facility] for Nurse and Physical Therapy. 2. Liver Transplant Recipient: h/o Liver Transplant 2014. Stable. Resume home Cyclosporine and Mycophenolate. 3. Renal Insufficiency: Improved 4. HTN: controlled. 5. Anemia: chronic iron deficiency anemia, today Hemoglobin 7.4 patient asymptomatic following. 6. Tobacco Abuse: Pt counselled. Ativan/NicoDerm prn if needed. Bronchodilator, Mucolytic and Incentive spirometry. 7. Hypokalemia replaced, Hypomagnesemia replaced and following. DVT Prophylaxis: Heparin. Discharge Planning Discharge Home with [facility] Tacos Germain MD Jun 27, 2017 10:17
--- NOTE | 2017-06-27 10:43 | HHI.FF ---
Face to Face Verification Diagnosis: (1) Renal insufficiency (2) Seizure disorder (3) Open ankle fracture (4) Liver transplant recipient Physical Therapy Order: Evaluate and Treat, Improve ambulation, Strength and gait training Home Health Nursing Order: Medical education Signs/symptoms of disease process Medication education-adverse effect I have seen patient Tanner Donald on 06/27/17. My clinical findings support the need for the requested home health care services because: Ltd mobility - disease progression I certify that my clinical findings support that this patient is homebound because: Unsafe to leave home unassisted Tacos Germain MD Jun 27, 2017 10:43
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
[2017-06-27] MEDS ORDERED: HYDR-3580 PO (11:29)
[2017-06-27] MEDS ORDERED: POTASSIUM CHLORIDE 20 MEQ CONTROLLED RELEASE TAB PO ONE (11:30)
[2017-06-27] MEDS: MAGNESIUM SULFATE 1 GM PREMIX 100 ML IV SCH ×2 (11:58→13:28)
[2017-06-27 13:56] LABS: HEMATOCRIT 22.5 % (35.0-46.0)
[2017-06-27] MEDS ORDERED: SODIUM CHLOR 0.9% 250 ML INJ 250 ML IV ONE ×2 (14:15)
[2017-06-27] MEDS ORDERED: FUROSEMIDE 20 MG/2 ML VIAL IV ONE (14:15)
[2017-06-27] MEDS ORDERED: ACETAMINOPHEN 325 MG TAB PO PRN (14:15)
[2017-06-27] MEDS: diphenhydrAMINE HCL 25 MG CAP PO PRN ×2 (17:48→23:30)
[2017-06-27] MEDS: CEPHALEXIN MONOHYDRATE 500 MG CAP PO SCH (20:44)
[2017-06-28] VITALS (8 sets, daily range): BP systolic 120–143; BP diastolic 66–77; PULSE 66–100; RESP 16–18; TEMP 97.4–98.7; O2SAT 98–100
[2017-06-28] MEDS: SODIUM CHLOR 0.9% 1000 ML INJ 1,000 ML IV SCH ×2 (02:39→12:39)
[2017-06-28] MEDS: ACETAMINOPHEN/HYDROcodone 325 MG/7.5 MG TAB PO PRN ×3 (02:43→15:25)
[2017-06-28] MEDS: MAGNESIUM OXIDE 400 MG TAB PO SCH (05:25)
[2017-06-28] MEDS: PANTOPRAZOLE SOD 40 MG DELAYED RELEASE TAB PO SCH (05:25)
[2017-06-28] MEDS: HEPARIN SODIUM - SQ 10,000 UNITS/ML VIAL SQ SCH ×2 (05:25→15:18)
[2017-06-28] MEDS: diphenhydrAMINE HCL 50 MG/ML VIAL IV PUSH PRN (05:33)
[2017-06-28] MEDS: amLODIPine BESYLATE 5 MG TAB PO SCH (09:51)
[2017-06-28] MEDS: DOCUSATE SODIUM 50 MG/SENNA 8.6 MG TAB PO SCH (09:51)
[2017-06-28] MEDS: SODIUM CHLORIDE 0.9% FLUSH 10 ML FLUSH IV FLUSH SCH (09:51)
[2017-06-28] MEDS: guaiFENesin E.R. 600 MG TAB PO SCH (09:51)
[2017-06-28] MEDS: levETIRAcetam 250 MG TAB PO SCH (09:51)
[2017-06-28] MEDS: CEPHALEXIN MONOHYDRATE 500 MG CAP PO SCH ×2 (09:51→13:10)
[2017-06-28] MEDS: MYCOPHENOLATE MOFETIL 250 MG CAP PO SCH (09:51)
[2017-06-28] MEDS: cycloSPORINE 25 MG CAP PO SCH (09:52)
[2017-06-28 10:25] LABS: HEMATOCRIT 31.5 % (35.0-46.0)
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
== END 2017-06-28 16:44 | disposition home health service (06) | DRG 464 ==
LOC: NEPE 23:51 → NEDA 06-23 02:36 → N06A 06-23 04:45
PROVIDERS: ADMIT Internal Medicine; ATTEND Internal Medicine
PROC: 0JBR0ZZ Excision of Left Foot Subcutaneous Tissue and Fascia, Open Approach (ICD-10-PCS; 2017-06-23)
PROC: 30253N1 (ICD-10-PCS; 2017-06-23)
PROC: 0SBG0ZZ Excision of Left Ankle Joint, Open Approach (ICD-10-PCS; principal; 2017-06-23 03:14)
PROC: 0QSH04Z Reposition Left Tibia with Internal Fixation Device, Open Approach (ICD-10-PCS; 2017-06-25)
PROC: 0JQR0ZZ Repair Left Foot Subcutaneous Tissue and Fascia, Open Approach (ICD-10-PCS; 2017-06-25)
DX: S82.52XB Displaced fracture of medial malleolus of left tibia, initial encounter for open fracture type I or II (principal); Z94.4 Liver transplant status; E83.42 Hypomagnesemia; G62.9 Polyneuropathy, unspecified; I10 Essential (primary) hypertension; D50.9 Iron deficiency anemia, unspecified; M10.9 Gout, unspecified; F17.210 Nicotine dependence, cigarettes, uncomplicated; S91.012A Laceration without foreign body, left ankle, initial encounter; Y92.481 Parking lot as the place of occurrence of the external cause; V48.0XXA Car driver injured in noncollision transport accident in nontraffic accident, initial encounter; E87.6 Hypokalemia; G40.909 Epilepsy, unspecified, not intractable, without status epilepticus; Z86.73 Personal history of transient ischemic attack (TIA), and cerebral infarction without residual deficits; K21.9 Gastro-esophageal reflux disease without esophagitis; N28.9 Disorder of kidney and ureter, unspecified; Z79.82 Long term (current) use of aspirin
CPT/HCPCS: 36430; 71010; 73610; 73630; 73700; 76000; 76937; 80048; 80053; 83735; 85014; 85018; 85025; 85610; 85730; 86850; 86900; 86901; 86920; 87015; 87070; 87102; 87116; 87205; 87206; 93005; 94150; 94640; 94664; 96361; 96374; 96375; C1713; J0690; J1170; J1200; J1580; J1644; J1940; J2270; J2370; J2405; J3010; J3475; J7030; J7050; J7120; J7515; J7517; P9016